=== PATIENT | male | born 1940 | race Caucasian/White ===

== ENCOUNTER 2016-07-10 07:30 | Day surgery (SDC) | payer MEDICARE, OTHER ==
--- NOTE | ~2016-07-10 | EGD ---
EGD REPORT [facility] [address] [place] [id number] NAME: ROLAND VALERIO : [birth year] STATUS : REG [facility] [place] PAT#: [id number] AGE: 75 ADM/REG DATE : 07/10/16 MR#: [id number] REPORT SERV DATE: 07/10/16 DICTATED BY: ROMI HAIR DATE: 07/10/16 REPORT STATUS : Draft TRANSCRIBED BY: [facility] DATE: 07/10/16 [facility] Patient Name: Roland Valerio Date of : 1940 Attending MD: ROMI HAIR MD Procedure Date No Time: 07/10/2016 Procedure: Colonoscopy Indications: Follow-up for history of adenomatous polyps in the colon, Last colonoscopy: June 2011 Referring MD: WERNER FAUSTIN MD Medicines: Propofol per Anesthesia Complications: No immediate complications. Estimated blood loss: None. Procedure: Pre-Anesthesia Assessment: - After reviewing the risks and benefits, the patient was deemed in satisfactory condition to undergo the procedure. - Prior to the procedure, a History and Physical was performed, and patient medications and allergies were reviewed. The patient's tolerance of previous anesthesia was also reviewed. The risks and benefits of the procedure and the sedation options and risks were discussed with the patient. All questions were answered, and informed consent was obtained. Prior Anticoagulants: The patient has taken no previous anticoagulant or antiplatelet agents. ASA Grade Assessment: III - A patient with severe systemic disease. After reviewing the risks and benefits, the patient was deemed in satisfactory condition to undergo the procedure. After I obtained informed consent, the scope was passed under direct vision. Throughout the procedure, the patient's blood pressure, pulse, and oxygen saturations were monitored continuously. The CF [id number] was introduced through the anus and advanced to the cecum, identified by appendiceal orifice and ileocecal valve. The colonoscopy was performed without difficulty. The ileocecal valve and appendiceal orifice were photographed. The patient tolerated the procedure well. The quality of the bowel preparation was adequate. The bowel preparation used was polyethylene glycol (PEG). Scope withdrawal time was greater than 6 minutes. Findings: The perianal exam was abnormal. Findings include skin tags. Non-bleeding internal hemorrhoids were found during retroflexion and were small. EGD REPORT [id number] [place]. [address] NAME: ROLAND VALERIO : [birth year] STATUS : REG [facility]#: [id number] AGE: 75 ADM/REG DATE : 07/10/16 MR#: [id number] REPORT SERV DATE: 07/10/16 DICTATED BY: ROMI HAIR DATE: 07/10/16 REPORT STATUS : Draft TRANSCRIBED BY: [facility] DATE: 07/10/16 The exam was otherwise without abnormality. Impression: - Perianal skin tags found on perianal exam. - Non-bleeding internal hemorrhoids. - The examination was otherwise normal. Recommendation: - Discharge patient to home. - Return to previous diet. - Continue present medications. - No further routine surveillance colonoscopy. - Return to GI clinic PRN. - Patient has a contact number available for emergencies. The signs and symptoms of potential delayed complications were discussed with the patient. Return to normal activities tomorrow. Written discharge instructions were provided to the patient. Procedure Code(s): --- Professional --- 71608, Colonoscopy, flexible, proximal to splenic flexure; diagnostic, with or without collection of specimen(s) by brushing or washing, with or without colon decompression (separate procedure) Diagnosis Code(s): --- Professional --- K64.4, Residual hemorrhoidal skin tags K64.8, Other hemorrhoids Z86.010, Personal history of colonic polyps CPT copyright 2013 [employer]. All rights reserved. The codes documented in this report are preliminary and upon medical coder review may be revised to meet current compliance requirements. ROMI HAIR MD 07/10/2016 9:26 AM This report has been signed electronically. Number of Addenda: 0 Note Initiated On: 07/10/2016 8:54 AM Scope Withdrawal Time 0 hours 7 minutes 12 seconds [id number] [id number]
[~2016-07-10 07:30] MED LIST: ASAB PO; FLONASE NAS; LIPITOR40 PO; NITROSTAT0.4 MG SL; PRIN10 PO; TYLENOL PM PO; VITAMIN D2000 UNIT PO; XALAT OPH
== END 2016-07-10 23:59 | disposition home or self-care (01) ==
LOC: DMU 07:30
PROVIDERS: Internal Medicine Gastroenterology
PROC: 0DJD8ZZ Inspection of Lower Intestinal Tract, Via Natural or Artificial Opening Endoscopic (ICD-10-PCS; principal; 2016-07-10 09:00)
DX: Z09 Encounter for follow-up examination after completed treatment for conditions other than malignant neoplasm (principal); K64.4 Residual hemorrhoidal skin tags; K64.8 Other hemorrhoids; I25.10 Atherosclerotic heart disease of native coronary artery without angina pectoris; I10 Essential (primary) hypertension; I25.2 Old myocardial infarction; H40.9 Unspecified glaucoma; E78.00 Pure hypercholesterolemia, unspecified; Z95.1 Presence of aortocoronary bypass graft; Z95.5 Presence of coronary angioplasty implant and graft; Z79.82 Long term (current) use of aspirin; Z79.51 Long term (current) use of inhaled steroids; Z79.899 Other long term (current) drug therapy; Z87.891 Personal history of nicotine dependence; Z86.010 Personal history of colon polyps; Z98.890 Other specified postprocedural states